=== PATIENT | male | born 1995 | race Caucasian/White ===

== ENCOUNTER 2024-10-06 20:41 | Emergency (ER) | payer OTHER ==
[~2024-10-06] VITALS: Ht 175.3 cm; Wt 81.6 kg
[2024-10-06] MEDS ORDERED: SUMATRIPTAN SUCCINATE 6 MG/0.5 ML VIAL SQ ONE (22:53)
[2024-10-06] MEDS: SUMATRIPTAN SUCCINATE 6 MG/0.5 ML VIAL SQ STA (22:56)
[2024-10-06] MEDS ORDERED: SUMA100T PO (23:08)
[2024-10-06 23:18] VITALS: BP 135/76; TEMP 98.4; O2SAT 99
== END 2024-10-06 23:19 | disposition home or self-care (01) ==
LOC: ER 20:51
DX: R51.9 Headache, unspecified (principal); Z88.5 Allergy status to narcotic agent
CPT/HCPCS: 99283; 96372; J3030